=== PATIENT | male | born 1975 | race American Indian/Alaskan Native ===

== ENCOUNTER 2017-02-10 20:39 | Emergency (ER) | payer OTHER ==
--- NOTE | 2017-02-10 20:56 | EDM.PDOC ---
ED HPI GENERAL MEDICAL PROBLEM - General Stated Complaint: ELBOW PAIN Time Seen by Provider: 02/10/17 20:41 Source of Information: Reports: Patient History Limitations: Reports: No Limitations - History of Present Illness INITIAL COMMENTS - FREE TEXT/NARRATIVE: Patient comes in tonight with complaints of right elbow pain for the last 2 days. 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 In an effort to try and keep it from tipping he tried to grab it with his elbow. He denies any snapping popping cracking noises. He has not attempted to try anything for the pain no ice no ibuprofen or Tylenol he has no other complaints tonight Quality: Reports: Ache Right Elbow Pain Score (Numeric/FACES): 5 - Related Data Allergies Allergy/AdvReac Type Severity Reaction Status Date / Time IVP dye Allergy Rash Uncoded 11/23/15 12:00 Home Meds: Home Meds . [Unable to Verify Home Med List] 11/23/15 [History] Past Medical History Cardiovascular History: Reports: High Cholesterol, Hypertension, Other (See Below) Other Cardiovascular History: CP. enlarged heart Musculoskeletal History: Reports: Back Pain, Chronic Review of Systems - Review of Systems Review Of Systems: See Below Constitutional: Reports: No Symptoms Eyes: Reports: No Symptoms Ears: Reports: No Symptoms Nose: Reports: No Symptoms Mouth/Throat: Reports: No Symptoms Respiratory: Reports: No Symptoms Cardiovascular: Reports: No Symptoms GI/Abdominal: Reports: No Symptoms Genitourinary: Reports: No Symptoms Musculoskeletal: Reports: Arm Pain (right elbow) ED EXAM, GENERAL - Physical Exam Exam: See Below Exam Limited By: No Limitations General Appearance: Alert, WD/WN, No Apparent Distress Extremities: Normal Inspection, Normal Range of Motion, Non-Tender, No Pedal Edema, Normal Capillary Refill, Arm Pain (elbow pain to the right elbow. No swelling, full ROM.) Neurological: Alert, Oriented, CN II-XII Intact, Normal Cognition Psychiatric: Normal Affect, Normal Mood Skin Exam: Warm, Dry, Intact Course - Vital Signs Last Recorded V/S: Last Vital Signs Temp 36.1 C 02/10/17 20:53 Pulse 86 02/10/17 20:53 Resp 16 02/10/17 20:53 BP 147/95 H 02/10/17 20:53 Pulse Ox 98 10/07/17 20:53 Departure - Departure Time of Disposition: 20:51 Disposition: Home, Self-Care 01 Condition: Good Clinical Impression: Right elbow pain - Discharge Information Instructions: Muscle Strain, [id number] Additional Instructions: For the next few days elevate and rest your elbow. Use ice for any swelling. I would also alternate Tylenol and ibuprofen for any pain or swelling. You most likely have an elbow strain of the muscle tendon or ligaments. If your elbow pain doesn't improve in the next 5-7 days I would schedule an appointment with a primary care provider. They may want to schedule an MRI to determine whether or not there is any soft tissue damage. Please call us if you have any questions or concerns. - Problem List & Annotations (1) Right elbow pain SNOMED Code(s): 45550450 Code(s): M25.521 - PAIN IN RIGHT ELBOW Status: Acute Priority: Low Current Visit: Yes - Problem List Review Problem List Initiated/Reviewed/Updated: Yes - Assessment/Plan Assessment:: right elbow strain Plan: For the next few days elevate and rest your elbow. Use ice for any swelling. I would also alternate Tylenol and ibuprofen for any pain or swelling. You most likely have an elbow strain of the muscle tendon or ligaments. If your elbow pain doesn't improve in the next 5-7 days I would schedule an appointment with a primary care provider. They may want to schedule an MRI to determine whether or not there is any soft tissue damage. Please call us if you have any questions or concerns.
== END 2017-02-10 21:00 | disposition home or self-care (01) ==
LOC: VM.ED 20:39
DX: S46.911A Strain of unspecified muscle, fascia and tendon at shoulder and upper arm level, right arm, initial encounter (principal); I10 Essential (primary) hypertension; E78.00 Pure hypercholesterolemia, unspecified; X50.0XXA Overexertion from strenuous movement or load, initial encounter
CPT/HCPCS: 99283; 99283-GF

== ENCOUNTER 2018-07-17 10:21 | Emergency (ER) | payer MEDICAID ==
--- NOTE | 2018-07-17 10:44 | EDM.PDOC ---
ED HPI GENERAL MEDICAL PROBLEM - General Chief Complaint: Upper Extremity Injury/Pain Stated Complaint: FELL Time Seen by Provider: 07/17/18 10:33 Source of Information: Reports: Patient History Limitations: Reports: No Limitations - History of Present Illness INITIAL COMMENTS - FREE TEXT/NARRATIVE: Patient reports falling down 3-4 stairs last night and this morning when he woke his left shoulder and hip are painful. Limited shoulder ROM, and lower back/buttock muscular pain. He denies chest pain, no SOB, no other injuries with the exception of a left forearm abrasion. Onset Date: 07/16/18 Duration: Intermittent Location: Reports: Upper Extremity, Left, Lower Extremity, Left Severity: Mild Worsens with: Reports: Movement Associated Symptoms: Reports: No Other Symptoms Left Shoulder Pain Score (Numeric/FACES): 5 Left Hip Pain Score (Numeric/FACES): 5 - Related Data Allergies Allergy/AdvReac Type Severity Reaction Status Date / Time IVP dye Allergy Rash Uncoded 03/05/18 02:55 Home Meds: Home Meds Aspirin 81 mg PO ONETIME 02/10/17 [History] Nitroglycerin [Nitrostat] 0.4 mg SL ASDIRECTED PRN 02/10/17 [History] Atenolol 25 mg PO DAILY 07/17/18 [History] atorvaSTATin [Lipitor] 20 mg PO BEDTIME 07/17/18 [History] Past Medical History Cardiovascular History: Reports: High Cholesterol, Hypertension, Other (See Below) Other Cardiovascular History: CP. enlarged heart Musculoskeletal History: Reports: Back Pain, Chronic Review of Systems - Review of Systems Review Of Systems: See Below Constitutional: Reports: No Symptoms Eyes: Reports: No Symptoms Ears: Reports: No Symptoms Nose: Reports: No Symptoms Mouth/Throat: Reports: No Symptoms Respiratory: Reports: No Symptoms Cardiovascular: Reports: No Symptoms GI/Abdominal: Reports: No Symptoms Genitourinary: Reports: No Symptoms Musculoskeletal: Reports: Shoulder Pain, Leg Pain (left shoulder left hip) Skin: Reports: Wound (left forearm abrasion) Neurological: Reports: No Symptoms Psychiatric: Reports: No Symptoms ED EXAM, GENERAL - Physical Exam Exam: See Below Exam Limited By: No Limitations General Appearance: Alert, WD/WN, No Apparent Distress Eye Exam: Bilateral Eye: EOMI, Normal Inspection Head: Atraumatic, Normocephalic Neck: Normal Inspection, Supple, Non-Tender, Full Range of Motion Respiratory/Chest: No Respiratory Distress, Lungs Clear, Normal Breath Sounds, No Accessory Muscle Use, Chest Non-Tender Cardiovascular: Normal Peripheral Pulses, Regular Rate, Rhythm, No Edema, No Gallop, No JVD, No Murmur, No Rub Extremities: Normal Inspection, Limited Range of Motion (left shoulder has full but painful ROM with elevation and both external/internal rotation) Neurological: Alert, Oriented, CN II-XII Intact, Normal Cognition, Normal Gait, Normal Reflexes, No Motor/Sensory Deficits Psychiatric: Normal Affect, Normal Mood Skin Exam: Wound/Incision (left foreram abrasion, C/D/I) Lymphatic: No Adenopathy Course - Vital Signs Last Recorded V/S: Last Vital Signs Temp 36.8 C 07/17/18 10:25 Pulse 73 07/17/18 10:25 Resp 18 07/17/18 10:25 BP 143/97 H 07/17/18 10:25 Pulse Ox 98 07/17/18 10:25 - Orders/Labs/Meds Orders: Active Orders 24 hr Category Date Time Status Hip Min 2V or 3V Lt [CR] Stat Exams 07/17/18 10:38 Ordered Shoulder Comp Lt [CR] Stat Exams 07/17/18 10:38 Ordered Departure - Departure Time of Disposition: 11:50 Disposition: Home, Self-Care 01 Condition: Good Clinical Impression: Low back strain, Sprain of shoulder, left - Discharge Information *PRESCRIPTION DRUG MONITORING PROGRAM REVIEWED*: Not Applicable *COPY OF PRESCRIPTION DRUG MONITORING REPORT IN PATIENT MAN: Not Applicable Instructions: Low Back Sprain, Shoulder Pain, [id number], How to Use a Sling , [id number], Shoulder Range of Motion Exercises Additional Instructions: Plan 1. No work the rest of the week unless they can provide you with non physical labor workload 2. Rest, elevate, and ice your shoulder 3. Take the flexeril for the muscle tightness in the lower back. You may also want to try heat on that. You can also visit a chiropractor if you have one you see 4. Alternate ibuprofen and tylenol for the pain and swelling 5. Follow up in the clinic in 7-10 days if you are not feeling any better, as a further workup may be necessary including an MRI 6. No fractures identified today, however these imaging tests do not see any potential ligament or cartilage damage 7. Wear the sling for pain control as much as tolerated and begin shoulder exercises after 2 days 8. Call us if you have any additional questions or concerns - Problem List & Annotations (1) Low back strain SNOMED Code(s): 406775019 Code(s): S39.012A - STRAIN OF MUSCLE, FASCIA AND TENDON OF LOWER BACK, INIT Status: Acute Priority: Low Current Visit: Yes Qualifiers: Encounter type: initial encounter Qualified Code(s): S39.012A - Strain of muscle, fascia and tendon of lower back, initial encounter (2) Sprain of shoulder, left SNOMED Code(s): 8729079 Code(s): S43.402A - UNSPECIFIED SPRAIN OF LEFT SHOULDER JOINT, INITIAL ENCOUNTER Status: Acute Priority: Low Current Visit: Yes Qualifiers: Encounter type: initial encounter Shoulder sprain type: unspecified sprain Qualified Code(s): S43.402A - Unspecified sprain of left shoulder joint, initial encounter - Problem List Review Problem List Initiated/Reviewed/Updated: Yes - My Orders Last 24 Hours: My Active Orders 07/17/18 10:38 Hip Min 2V or 3V Lt [CR] Stat Shoulder Comp Lt [CR] Stat - Assessment/Plan Last 24 Hours: My Active Orders 07/17/18 10:38 Hip Min 2V or 3V Lt [CR] Stat Shoulder Comp Lt [CR] Stat Assessment:: left shoulder sprain left lower back strain Plan: Plan 1. No work the rest of the week unless they can provide you with non physical labor workload 2. Rest, elevate, and ice your shoulder 3. Take the flexeril for the muscle tightness in the lower back. You may also want to try heat on that. You can also visit a chiropractor if you have one you see 4. Alternate ibuprofen and tylenol for the pain and swelling 5. Follow up in the clinic in 7-10 days if you are not feeling any better, as a further workup may be necessary including an MRI 6. No fractures identified today, however these imaging tests do not see any potential ligament or cartilage damage 7. Wear the sling for pain control as much as tolerated and begin shoulder exercises after 2 days 8. Call us if you have any additional questions or concerns
[2018-07-17] MEDS: Cyclobenzaprine 10 MG Tab PO ONE (11:11)
[2018-07-17] MEDS: Ketorolac 10 MG Tab PO ONE (11:11)
== END 2018-07-17 11:50 | disposition home or self-care (01) ==
LOC: VM.ED 10:21
DX: S39.012A Strain of muscle, fascia and tendon of lower back, initial encounter (principal); S43.402A Unspecified sprain of left shoulder joint, initial encounter; I10 Essential (primary) hypertension; W10.9XXA Fall (on) (from) unspecified stairs and steps, initial encounter; Z91.041 Radiographic dye allergy status
CPT/HCPCS: 73030; 73502; 99283; A9270

== ENCOUNTER 2018-07-30 19:10 | Emergency (ER) | payer MEDICAID ==
--- NOTE | 2018-07-30 19:23 | EDM.PDOC ---
ED HPI GENERAL MEDICAL PROBLEM - General Chief Complaint: General Stated Complaint: lump over left buttock post fall Time Seen by Provider: 07/30/18 19:12 Source of Information: Reports: Patient, Old Records, RN, RN Notes Reviewed History Limitations: Reports: No Limitations - History of Present Illness INITIAL COMMENTS - FREE TEXT/NARRATIVE: Patient presents the emergency room at [facility] for the evaluation of swelling to the left lower back. The patient had sustained a fall around July 22, 2018. The patient was in this emergency room for evaluation at that time and his x-rays were normal. The patient states he noticed about 4-5 days ago a lump and swelling under the skin along the left upper buttocks and bruising around the same area. The patient denies any bowel or bladder dysfunction. The patient states the area is merely annoying. The patient denies any numbness tingling or paresthesia to any extremity. The patient states that it does get bothersome and painful when pressure is applied to the affected area. The patient has not had any trouble with walking. Patient denies any ataxia. Patient states that the area is tender to deep palpation. The patient denies any spinous process tenderness. The patient is concerned because he states the swelling has not subsided yet. Left Lower Back Pain Score (Numeric/FACES): 4 - Related Data Allergies Allergy/AdvReac Type Severity Reaction Status Date / Time IVP dye Allergy Rash Uncoded 07/30/18 19:17 Home Meds: Home Meds Aspirin 81 mg PO DAILY 02/10/17 [History] Nitroglycerin [Nitrostat] 0.4 mg SL ASDIRECTED PRN 02/10/17 [History] Atenolol 25 mg PO DAILY 07/17/18 [History] atorvaSTATin [Lipitor] 20 mg PO BEDTIME 07/17/18 [History] Past Medical History Cardiovascular History: Reports: High Cholesterol, Hypertension, Other (See Below) Other Cardiovascular History: CP. enlarged heart Musculoskeletal History: Reports: Back Pain, Chronic ED ROS GENERAL - Review of Systems Review Of Systems: See Below Constitutional: Denies: Fever, Chills Respiratory: Denies: Shortness of Breath, Cough Cardiovascular: Denies: Chest Pain, Palpitations Musculoskeletal: Reports: Muscle Pain, Muscle Stiffness Skin: Reports: Lumps (left upper buttocks) Neurological: Reports: No Symptoms ED EXAM, GENERAL - Physical Exam Exam: See Below Exam Limited By: No Limitations General Appearance: Alert, No Apparent Distress Respiratory/Chest: No Respiratory Distress, Lungs Clear, Normal Breath Sounds Cardiovascular: Normal Peripheral Pulses, Regular Rate, Rhythm Peripheral Pulses: 2+: Radial (L), Radial (R) Back Exam: Normal Inspection, Full Range of Motion. No: Muscle Spasm, Paraspinal Tenderness, Vertebral Tenderness Neurological: Alert, Oriented Skin Exam: Warm, Dry, Intact, Ecchymosis (lower lumbar spine; hematoma palpated along the left upper buttocks; no evidence of infection; tender to palpation; no concerns) Course - Vital Signs Last Recorded V/S: Last Vital Signs Temp 36.4 C 07/30/18 19:18 Pulse 85 07/30/18 19:18 Resp 16 07/30/18 19:18 BP 146/95 H 07/30/18 19:18 Pulse Ox 96 07/30/18 19:18 - Orders/Labs/Meds Orders: Active Orders 24 hr Category Date Time Status Lumbar Spine 2 or 3V [CR] Stat Exams 07/30/18 19:18 Ordered Departure - Departure Time of Disposition: 19:41 Disposition: Home, Self-Care 01 Condition: Good Clinical Impression: Hematoma and contusion Lower back injury Qualifiers: Encounter type: initial encounter Qualified Code(s): S39.92XA - Unspecified injury of lower back, initial encounter Fall Qualifiers: Encounter type: subsequent encounter Qualified Code(s): W19.XXXD - Unspecified fall, subsequent encounter - Discharge Information *PRESCRIPTION DRUG MONITORING PROGRAM REVIEWED*: Not Applicable *COPY OF PRESCRIPTION DRUG MONITORING REPORT IN PATIENT MAN: Not Applicable Instructions: Back Exercises, Back Injury Prevention, Hematoma Forms: ED Department Discharge Additional Instructions: 1. Stay well hydrated and rest 2. Use a heating pad to the swelling 3. Use Tylenol/Advil as needed 4. See your PCP as symptoms warrant - Problem List Review Problem List Initiated/Reviewed/Updated: Yes - My Orders Last 24 Hours: My Active Orders 07/30/18 19:18 Lumbar Spine 2 or 3V [CR] Stat - Assessment/Plan Last 24 Hours: My Active Orders 07/30/18 19:18 Lumbar Spine 2 or 3V [CR] Stat Assessment:: Fall Low back pain Hematoma Plan: Normal LS spine xrays. Recommend watchful waiting. May use a heating pad to swelling. Alternate Tylenol/Advil as needed. See PCP as symptoms warrant.
--- NOTE | 2018-07-30 19:46 | CR ---
[id number] RAD/RAD Lumbar Spine 2-3V Exam: RAD Lumbar Spine 2-3V Indication:FALL, SWELLING AND PAIN IN LS Comparison: No prior imaging for comparison. Discussion: No evidence of an acute fracture or compression deformity. Hypoplastic ribs at T12. Changes of spondylosis, most prominent at L4-5 and L5-S1 where there is intervertebral disc height loss. Impression: No acute findings. Lukas Rico MD 07/30/18 1945 Thank you for allowing us to participate in the care of your patient.
== END 2018-07-30 19:47 | disposition home or self-care (01) ==
LOC: VM.ED 19:10
DX: S30.0XXA Contusion of lower back and pelvis, initial encounter (principal); I10 Essential (primary) hypertension; Z79.899 Other long term (current) drug therapy; Z79.82 Long term (current) use of aspirin; Z91.041 Radiographic dye allergy status; W19.XXXA Unspecified fall, initial encounter
CPT/HCPCS: 72100; 99283-25

== ENCOUNTER 2020-01-24 09:30 | Emergency (ER) | payer MEDICAID, OTHER ==
--- NOTE | 2020-01-24 10:13 | EDM.PDOC ---
ED HPI GENERAL MEDICAL PROBLEM - General Chief Complaint: Upper Extremity Injury/Pain Stated Complaint: LT ELBOW Time Seen by Provider: 01/24/20 10:00 Source of Information: Reports: Patient History Limitations: Reports: No Limitations - History of Present Illness INITIAL COMMENTS - FREE TEXT/NARRATIVE: Patient comes into the emergency department with complaint of left elbow injury. Patient states elbow injury happened approximately 2 weeks ago. Patient states that he hit his elbow while he was at work. He noticed a discomfort right away but was able to continue working. He denied any CMS or range of motion concerns at the time of the injury. The next morning he noticed that there was a small amount of fluid accumulation on the left elbow. He showed his boss and continue to work without any difficulty. The patient states that the swelling has gotten better however there is still little bit of fluid at the site and it is tender at times. He states that he still continues to have no range of motion or CMS concerns and he is able to work with it and use his hand without any difficulty. He was just curious to find out if there is any further concerns to be worried about. Patient states that he has had grafting completed on that arm before. Patient denies any redness, swelling, fever, nausea, vomiting, dizziness, chest pain, shortness of breath, GI upset, or peripheral edema. Patient states he is been relatively healthy and has no other major concerns. He also denies any recent COVID-19 symptoms or exposure. Onset: Sudden, Gradual Quality: Reports: Other Severity: Mild Improves with: Reports: None Worsens with: Reports: None Context: Reports: Activity Associated Symptoms: Reports: No Other Symptoms - Related Data Allergies Allergy/AdvReac Type Severity Reaction Status Date / Time IVP dye Allergy Rash Uncoded 07/30/18 19:17 Home Meds: Home Meds Aspirin 81 mg PO DAILY 02/10/17 [History] Nitroglycerin [Nitrostat] 0.4 mg SL ASDIRECTED PRN 02/10/17 [History] atenoloL [Atenolol] 25 mg PO DAILY 07/17/18 [History] atorvaSTATin [Lipitor] 20 mg PO BEDTIME 07/17/18 [History] Past Medical History Cardiovascular History: Reports: High Cholesterol, Hypertension, Other (See Below) Other Cardiovascular History: CP. enlarged heart Musculoskeletal History: Reports: Back Pain, Chronic ED ROS GENERAL - Review of Systems Review Of Systems: Comprehensive ROS is negative, except as noted in HPI. Constitutional: Reports: No Symptoms HEENT: Reports: No Symptoms Respiratory: Reports: No Symptoms Cardiovascular: Reports: No Symptoms Endocrine: Reports: No Symptoms GI/Abdominal: Reports: No Symptoms : Reports: No Symptoms Musculoskeletal: Reports: No Symptoms Skin: Reports: No Symptoms Neurological: Reports: No Symptoms Psychiatric: Reports: No Symptoms Hematologic/Lymphatic: Reports: No Symptoms Immunologic: Reports: No Symptoms ED EXAM, GENERAL - Physical Exam Exam: See Below Exam Limited By: No Limitations General Appearance: Alert, WD/WN, No Apparent Distress Head: Atraumatic, Normocephalic Neck: Normal Inspection, Supple, Non-Tender, Full Range of Motion Respiratory/Chest: No Respiratory Distress, No Accessory Muscle Use, Chest Non- Tender Cardiovascular: Normal Peripheral Pulses, Regular Rate, Rhythm Peripheral Pulses: 4+: Radial (L), Radial (R) Extremities: No: Other (Left elbowmild bursitis noted. CMS and range of motion intact, no redness, ecchymosis, warmth, or tenderness noted. Skin grafting present chronic in nature.) Neurological: Alert Psychiatric: Normal Affect, Normal Mood Skin Exam: Warm, Dry, Intact, Normal Color Departure - Departure Time of Disposition: 10:15 Disposition: Home, Self-Care 01 Condition: Good Clinical Impression: Bursitis of left elbow Qualifiers: Elbow bursitis location: unspecified Qualified Code(s): M70.32 - Other bursitis of elbow, left elbow - Discharge Information *PRESCRIPTION DRUG MONITORING PROGRAM REVIEWED*: Not Applicable *COPY OF PRESCRIPTION DRUG MONITORING REPORT IN PATIENT MAN: Not Applicable Instructions: Bursitis, [id number] Forms: ED Department Discharge, ED Return to Work/School Form Additional Instructions: 1. Rest 2. Keep the area clean and dry 3. Can use tylenol and ibuprofen as needed for pain and discomfort 4. Diet as tolerated 5. Activity as tolerated 6. Elevated the injured area above the level of the heart to decrease swelling and discomfort if applicable 7. Can use ice 3-4 times a day at 20-minute intervals to help with any swelling and discomfort 8. Follow-up with orthopedic speciality on Sunday. Call [facility] to set up an appointment 9. Discharge information has been provided regarding your injury has been provided - Assessment/Plan Assessment:: 1. Left elbow bursitis Plan: 1. Rest 2. Can use tylenol and ibuprofen as needed for pain and discomfort 3. Diet as tolerated 4. Activity as tolerated 5. Elevated the injured area above the level of the heart to decrease swelling and discomfort. 6. Use ice 3-4 times a day at 20-minute intervals to help with any swelling and discomfort 7. Follow-up with orthopedic in [place] for further evaluation regarding management and draining if needed. 8. Follow with any questions or concerns 9. Discharge information has been provided regarding your injury
== END 2020-01-24 10:40 | disposition home or self-care (01) ==
LOC: VM.ED 09:30
DX: M70.32 Other bursitis of elbow, left elbow (principal); I10 Essential (primary) hypertension; E78.00 Pure hypercholesterolemia, unspecified; Z91.041 Radiographic dye allergy status; Z79.82 Long term (current) use of aspirin; Z79.899 Other long term (current) drug therapy
CPT/HCPCS: 99283

== ENCOUNTER 2021-02-24 16:44 | Emergency (ER) | payer MEDICAID ==
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
[2021-02-24 17:58] LABS: ANION GAP 15.9 mmol/L (5-15); CHLORIDE,CL 107 mmol/L (98-107); SODIUM,NA 143 mmol/L (136-145)
--- NOTE | 2021-02-24 18:14 | CR ---
[id number] RAD/RAD Chest PA or AP 1V EXAM: RAD Chest PA or AP 1V INDICATION: Chest pain. COMPARISON: None. DISCUSSION/IMPRESSION: Cardiomediastinal silhouette is normal in size and contour. Lungs are clear. No pleural effusion or pneumothorax. Lukas Rico MD 02/24/21 [id number] Thank you for allowing us to participate in the care of your patient.
== END 2021-02-24 18:26 | disposition home or self-care (01) ==
LOC: VM.ED 16:44
DX: I20.9 Angina pectoris, unspecified (principal); E78.00 Pure hypercholesterolemia, unspecified; I10 Essential (primary) hypertension; Z79.82 Long term (current) use of aspirin; Z91.041 Radiographic dye allergy status; Z79.899 Other long term (current) drug therapy
CPT/HCPCS: 36415; 71045; 80048; 84484; 85025; 99285-25

== ENCOUNTER 2023-09-18 10:19 | Emergency (ER) | payer BC ==
[2023-09-18] MEDS: Aspirin 81 MG Tab.Chew PO ONE (10:48)
[2023-09-18 11:01] LABS: BASOPHILS PERCENT AUTO 0.4 % (0.2-1.2); EOSINOPHILS ABSOLUTE AUTO 0.3 x10^3/uL (0.0-0.5); EOSINOPHILS PERCENT AUTO 5.2 % (0.0-4.0); HEMATOCRIT 44.6 % (40.0-52.0); HEMOGLOBIN 14.9 g/dL (14.0-18.0); IMMATURE GRAN ABSOLUTE AUTO 0.01 x10^3/uL (0.00-0.07); LYMPHOCYTES PERCENT AUTO 21.3 % (25.0-50.0); MEAN CORPUSCULAR HEMOGLOBIN 30.1 pg (26.0-32.0); MEAN CORPUSCULAR HGB CONC 33.4 g/dL (32.0-36.0); MEAN CORPUSCULAR VOLUME 90.1 fL (78.0-93.0); MONOCYTES ABSOLUTE AUTO 0.4 x10^3/uL (0.0-0.8); MONOCYTES PERCENT AUTO 7.5 % (2.0-11.0); NEUTROPHILS ABSOLUTE AUTO 3.1 x10^3/uL (1.8-7.7); NEUTROPHILS PERCENT AUTO 65.4 % (50.0-80.0); PLATELET COUNT,PLT 231 x10^3/uL (130-400); RED BLOOD CELL COUNT 4.95 x10^6/uL (4.5-6.0); WHITE BLOOD CELL COUNT,WBC 4.8 x10^3/uL (4.0-10.0)
[2023-09-18] MEDS: Nitroglycerin 0.4 MG Tab.SL SL PRN (11:02)
[2023-09-18 11:26] LABS: BLOOD UREA NITROGEN,BUN 16 mg/dL (7-18); CARBON DIOXIDE,CO2 24 mmol/L (21-32); CHLORIDE,CL 106 mmol/L (98-107); CREATININE 0.8 mg/dL (0.70-1.30); GLUCOSE RANDOM 108 mg/dL (70-99); POTASSIUM,K 3.8 mmol/L (3.5-5.1); SODIUM,NA 142 mmol/L (136-145)
[2023-09-18 11:27] LABS: ANION GAP 15.8 mmol/L (5-15); ESTIMATED GFR 108 mL/min (>=60)
== END 2023-09-18 13:10 | disposition home or self-care (01) ==
LOC: VM.ED 10:19
DX: R07.89 Other chest pain (principal); I10 Essential (primary) hypertension; E78.00 Pure hypercholesterolemia, unspecified; Z91.041 Radiographic dye allergy status; Z79.82 Long term (current) use of aspirin; Z79.899 Other long term (current) drug therapy
CPT/HCPCS: 36415; 71046; 80048; 84484; 85025; 93005; 99285; A9270-GY

== ENCOUNTER 2024-11-24 21:36 | Emergency (ER) | payer BC ==
[2024-11-24] MEDS ORDERED: Sodium Chloride 0.9% 10 ML Syringe FLUSH PRN (21:47)
[2024-11-24 22:00] LABS: BASOPHILS ABSOLUTE AUTO 0.0 x10^3/uL (0.0-0.2); BASOPHILS PERCENT AUTO 0.2 % (0.2-1.2); EOSINOPHILS ABSOLUTE AUTO 0.1 x10^3/uL (0.0-0.5); EOSINOPHILS PERCENT AUTO 1.5 % (0.0-4.0); IMMATURE GRAN ABSOLUTE AUTO 0.00 x10^3/uL (0.00-0.07); IMMATURE GRAN PERCENT AUTO 0.00 % (0.00-0.43); LYMPHOCYTES ABSOLUTE AUTO 1.5 x10^3/uL (1.0-4.8); LYMPHOCYTES PERCENT AUTO 18.4 % (25.0-50.0); MONOCYTES ABSOLUTE AUTO 0.5 x10^3/uL (0.0-0.8); MONOCYTES PERCENT AUTO 6.3 % (2.0-11.0); NEUTROPHILS ABSOLUTE AUTO 6.1 x10^3/uL (1.8-7.7); NEUTROPHILS PERCENT AUTO 73.6 % (50.0-80.0); PLATELET COUNT,PLT 239 x10^3/uL (130-400); RED BLOOD CELL COUNT 5.01 x10^6/uL (4.5-6.0); WHITE BLOOD CELL COUNT,WBC 8.3 x10^3/uL (4.0-10.0)
[2024-11-24 22:10] LABS: INR 0.9 (0.9-1.1); PTT,PARTIAL THROMBOPLSTIN TIME 26.4 SEC (23.5-33.2)
[2024-11-24 22:14] LABS: A/G RATIO 0.95; ALANINE AMINOTRANSFERASE,ALT 23 U/L (16-63); ASPARTATE AMNIOTRANSFERASE,AST 15 U/L (15-37); BILIRUBIN TOTAL 0.4 mg/dL (0.2-1.0); BLOOD UREA NITROGEN,BUN 25 mg/dL (7-18); CARBON DIOXIDE,CO2 23 mmol/L (21-32); CHLORIDE,CL 106 mmol/L (98-107); CREATININE 1.3 mg/dL (0.70-1.30); GLUCOSE RANDOM 149 mg/dL (70-99); POTASSIUM,K 3.6 mmol/L (3.5-5.1); PROTEIN TOTAL,TP 7.4 g/dL (6.4-8.2); SODIUM,NA 140 mmol/L (136-145)
[2024-11-24 22:15] LABS: ESTIMATED GFR 67 mL/min (>=60)
[2024-11-24] MEDS: Ketorolac 15 MG/ML SDV IVPUSH ONE (22:41)
[2024-11-24] MEDS: Take Home: Doxycycline 100 MG Cap, 4 Cap Pack PO ONE (23:09)
== END 2024-11-25 00:17 | disposition home or self-care (01) ==
LOC: VM.ED 21:36
DX: J18.9 Pneumonia, unspecified organism (principal); I10 Essential (primary) hypertension; E78.00 Pure hypercholesterolemia, unspecified; F17.200 Nicotine dependence, unspecified, uncomplicated; Z79.899 Other long term (current) drug therapy; Z79.82 Long term (current) use of aspirin; Z91.041 Radiographic dye allergy status
CPT/HCPCS: 36415; 71045; 80053; 83735; 84484; 85025; 85610; 85730; 86140; 93005; 93010; 96374; 96375; 99284; 99285-25; A9270-GY; J0696; J1885